=== PATIENT | female | born 1985 | race Caucasian/White ===

== ENCOUNTER 2016-08-27 00:34 | Emergency (ER) ==
[2016-08-27] MEDS ORDERED: NS 1,000 ML IV ONE ×2 (00:54→01:48)
[2016-08-27] MEDS ORDERED: PHENERGAN IV ONE ×2 (00:54→03:51)
[2016-08-27] MEDS ORDERED: SODIUM CHLORIDE 0.9% INJ ONE ×2 (00:54→03:51)
[2016-08-27 01:31] LABS: MANUAL DIFF NEEDED? NO
--- NOTE | 2016-08-27 01:48 | PROVIDER DOCUMENTATION ---
HPI-Abdominal Pain/GI Problem - General Source: patient - History of Present Illness-ABD Pain Radiation: reports: other (no pain) Quality of Pain: reports: none Timing: reports: still present Activities at Onset: reports: none Modifying Factors: improves with: nothing <Jakob Talbot - Last Filed: 08/27/16 01:42> <Ever Valdes - Last Filed: 08/27/16 04:38> - General Chief Complaint: Nausea/Vomiting Stated Complaint: 11 WKS,VOMITING, Time Seen by Provider: 08/27/16 01:10 - History of Present Illness-ABD Nature of Presenting Problems: 31 y/o WF presents to the ED with N/V for the past 6 weeks. Pt states she is 11 weeks and her OB has been helping with vomiting but has not been able to see her in a week. Pt has no other complications with her and no cramping. (Jakob Talbot) Review of Systems - Adult - REVIEW OF SYSTEMS - ADULT Constitutional: denies: chills, fever Eyes: reports: no symptoms reported Ears, Nose, Mouth & Throat: reports: no symptoms reported Cardiovascular: reports: no symptoms reported Respiratory: reports: no symptoms reported Gastrointestinal: reports: nausea, vomiting. denies: abdominal pain, hematemesis, diarrhea Genitourinary: denies: dysuria, frequency, hematuria Musculoskeletal: reports: no symptoms reported Integumentary: reports: no symptoms reported Neurological: reports: no symptoms reported Psychiatric: reports: no symptoms reported Endocrine: reports: no symptoms reported Hematologic/Lymphatic: reports: no symptoms reported Allergic/Immunologic: reports: no symptoms reported All Other Systems: Reviewed and Negative <Jakob Talbot - Last Filed: 08/27/16 01:42> Past History - Adult - PAST MEDICAL HISTORY-ADULT Review of Records: reports: Old Records Reviewed, Nursing Assessment Review, Medications Reviewed - SOCIAL HISTORY Smoking: non-smoker Living Situation: family <Jakob Talbot - Last Filed: 08/27/16 01:42> Physical Exam-General - PHYSICAL EXAM-ADULT Initial Vital Signs Reviewed: Yes - CONSTITUTIONAL General Appearance: appears well, alert, no apparent distress, thin (very thin) - EYES Eyes: PERRL/EOMI, pink conjunctivae - HEAD, EARS, NOSE, MOUTH & THROAT HENMT: moist mucous membranes, normal ENT inspection, TMs normal, pharynx normal - NECK Neck: non-tender, full range of motion, supple - RESPIRATORY Respiratory: lungs clear, normal breath sounds, no pleuratic chest pain, no respiratory distress, no accessory muscle use - CARDIOVASCULAR Cardiovascular: normal peripheral pulses, regular rate, rhythm - GASTROINTESTINAL (ABDOMEN) Abdominal Exam: normal bowel sounds, non tender, soft - MUSCULOSKELETAL Back Exam: normal inspection, no CVA tenderness, no vertebral tenderness Extremity: normal range of motion, non-tender, normal gait, normal inspection - SKIN Integumentary: normal color, normal turgor, warm/dry - NEUROLOGIC Neurologic: grossly normal, no motor/sensory deficits - PSYCHIATRIC Psych/Mental Status: normal mood/affect, normal thought content, normal thought process, oriented x 3 <Jakob Talbot - Last Filed: 08/27/16 01:42> Departure <Jakob Talbot - Last Filed: 08/27/16 01:42> - Departure Time of Disposition Order: 04:37 Certified Medical Emergency: Emergent <Ever Valdes - Last Filed: 08/27/16 04:38> - Departure DIAGNOSIS: Hyperemesis gravidarum Disposition: HOME 01 Condition: Stable Additional Instructions: FOLLOW UP WITH YOUR OBGYN. ED Follow Up Instructions: You have been treated by a care provider in the Emergency Department. These instructions are being provided to you so you can have an understanding of how to care for yourself upon discharge. Upon discharge from the Emergency Department, you are responsible for making arrangements for follow-up care by a physician of your choice. Take all prescribed medications as directed. Return to the Emergency Department immediately for any new or worsening symptoms. You may call the Physician Referral phone number at [phone] to obtain a list of Physicians who are taking new patients. Prescriptions: Promethazine [Phenergan] 25 mg SC Q6H PRN PRN #14 supp PRN Reason: Nausea Ondansetron [Zofran] 4 mg PO Q6H PRN PRN #20 tablet PRN Reason: Nausea Referrals: None,PCP [Primary Care Provider] - Deb Silva MD [STAFF PHYSICIAN] - Forms: Return to School/Parent Work Instructions: Ondansetron oral dissolving tablet, Promethazine tablets, Nausea and Vomiting Attestation - Scribe Verification/Attestation Scribe:: Jakob Talbot Acting as Scribe for:: Josh Li Scribe documention review:: This chart was documented by a scribe and accurately reflects the service the provider performed and the decisions made by the provider. - Physician/ Mid-level Attestation Patient care was provided by Mid-level provider ([employer]PA):: Yes Mid-level provider:: Josh Li Mid-level documentation review:: The Mid-level provider documentation, treatment plan and medical decision making was reviewed by the physician who agrees with all treatment and medical decision making by the P. <Jakob Talbot - Last Filed: 08/27/16 01:42> Physician Attestation
[2016-08-27 02:14] LABS: BASO% 0.3 % (0.0-0.8); EOS# 0.02 X1000 (0.0-0.7); EOS% 0.3 % (0.0-10.0); HEMOGLOBIN 14.2 g/dL (12.0-16.0); IMM GRAN# 0.01 X1000 (0.0-0.04); IMM GRAN% 0.1 % (0.0-0.5); LYMPH# 1.16 X1000 (1.2-3.4); LYMPH% 16.1 % (20.5-51.1); MCH 30.3 PG (27-31); MCHC 35.5 g/dL (33-37); MCV 85.3 FL (81-99); MONO# 0.52 X1000 (0.11-0.59); MONO% 7.2 % (1.7-9.3); MPV 11.3 FL (7.4-10.4); PLT 210 X1000 (130-400); RBC 4.69 XMIL (4.2-5.4)
[2016-08-27 02:25] LABS: AGAP 16; ALBUMIN 4.5 g/dL (3.5-5.0); ALKALINE PHOSPHATASE 43 U/L (32-104); BUN 16 mg/dL (8-22); CALCIUM 10.2 mg/dL (8.8-10.2); CHLORIDE 97 mmol/L (98-107); COSMO 268; GOT 18 U/L (10-30); GPT 11 U/L (10-36); POTASSIUM 3.4 mmol/L (3.5-5.1); SODIUM 133 mmol/L (136-145); TCO2 20 mmol/L (25-35)
[2016-08-27] MEDS ORDERED: ZOFRAN IV ONE (02:40)
[2016-08-27 02:53] LABS: URINE SOURCE CLEAN CATCH
[2016-08-27 03:24] LABS: BILIRUBIN URINE NEGATIVE (NEGATIVE); BLOOD URINE NEGATIVE (NEGATIVE); CLARITY VERY CLOUDY (CLEAR); COLOR YELLOW; GLUCOSE URINE NEGATIVE (NEGATIVE); LEUKOCYTES URINE 1+ (NEGATIVE); NITRITE URINE NEGATIVE (NEGATIVE); PROTEIN URINE TRACE mg/dL (NEGATIVE); SP GRAVITY URINE 1.025; UROBILINOGEN URINE 1+(1 mg/dL)
[2016-08-27 03:27] LABS: URINE CULTURE PL NEEDED? YES; URINE EPITHELIAL CELLS <10 /HPF (<10); URINE RBC <10 /HPF (<10)
[2016-08-27] MEDS ORDERED: PHENERGAN ONE (03:52)
[2016-08-27] MEDS ORDERED: BENADRYL IV ONE (05:23)
[2016-08-27] MEDS ORDERED: BENADRYL ONE (05:24)
[2016-08-27 06:06] VITALS: BP 113/077
== END 2016-08-27 06:05 | disposition home or self-care (01) ==
LOC: P.ED 00:34
DX: O21.0 Mild hyperemesis gravidarum (principal); Z3A.11 11 weeks gestation of pregnancy
CPT/HCPCS: 80053; 81001; 84702; 85025; 87088; 96361; 96374; 96375; 96376; J1200; J2405; J2550; J7030